=== PATIENT | female | born 1950 | race Caucasian/White ===

== ENCOUNTER → 2018-12-04 12:07 | Emergency (ER) | payer MEDICARE, OTHER ==
[~2018-12-04 12:07] MED LIST: Gadoteridol* (CONTRAST) 279.3 MG/ML 10 ML IV ONE; Ketorolac INJ* 30 MG/ML 1 ML VIAL IV PUSH ONE; Metoclopramide IV* 5 MG/ML 2 ML VIAL IV SLOW PU ONE; diPHENhydraMINE IV* 50 MG/ML 1 ml VIAL (BENADRYL) IV ONE; hydrALAZINE IV* 20 MG/ML VIAL IV SLOW PU ONE
--- NOTE | 2018-12-04 13:01 | ED ---
Headache - HPI Summary HPI Summary: A 68 y/o F with HTN presents to ED c/o intermittent pounding THOMPSON onset five days ago. Alleviating factors: Benadryl. Associated sx: nausea. Pt denies any fever, chills, erythema of eyes, photophobia, sore throat, CP, SOB, cough, abdominal pain, vomiting, dysuria, hematuria, myalgia, edema, rash, or dizziness. She has neck pain per baseline. Patient notes drinking wine the night before initial onset of THOMPSON. Her usual BP is approx 130/80. Vitals at bedside show BP: 180/115. - History Of Current Complaint Chief Complaint: EDHeadache Stated Complaint: HEADACHE PER PT Time Seen by Provider: 12/04/18 12:08 Hx Obtained From: Patient, Medical Records Onset/Duration: Started days ago, Still Present Currently Pain Is: Current Pain Scale(0-10)= - 7, Severe Timing: Intermittent, Lasting: Character: Throbbing - "aching" Allevating Factors: Medication - Benadryl Associated Signs And Symptoms: Nausea, Other (Noted In Comments) - neg: fever, chills, erythema of eyes, photophobia, sore throat, CP, SOB, cough, abdominal pain, vomiting, dysuria, hematuria, myalgia, edema, rash, or dizziness. - Allergies/Home Medications Allergies/Adverse Reactions: Allergies Allergy/AdvReac Type Severity Reaction Status Date / Time bupropion [From Wellbutrin] AdvReac Rash Verified 12/04/18 12:55 Sulfa (Sulfonamide AdvReac Hives Verified 12/04/18 12:55 Antibiotics) tramadol AdvReac Rash Verified 12/04/18 12:55 Home Medications: Home Medications Atorvastatin* [Lipitor*] 40 mg PO DAILY 12/04/18 [History Confirmed 12/04/18] Citalopram TAB* [CeleXA TAB*] 20 mg PO DAILY 12/04/18 [History Confirmed ] Furosemide TAB* [Lasix TAB*] 40 mg PO DAILY 12/04/18 [History Confirmed 12/04/18 ] Levothyroxine TAB* [Synthroid TAB*] 25 mcg PO DAILY 12/04/18 [History Confirmed 12/04/18] Naproxen TAB* [Naprosyn 250 mg TAB*] 500 mg PO Q4HR PRN 12/04/18 [History Confirmed 12/04/18] Pedi Multivit No.25/Folic Acid [Flintstones Multivit Chew Tab] 2 tab PO DAILY [History Confirmed 12/04/18] amLODIPine TAB* [Norvasc 5 mg TAB*] 2.5 mg PO DAILY 12/04/18 [History Confirmed 12/04/18] l Gasseri/B Bifidum/B Longum [[employer]] 1 cap PO DAILY 12/04/18 [ History Confirmed 12/04/18] PMH/Surg Hx/FS Hx/Imm Hx Previously Healthy: No Cardiovascular History: Reports: Hx Hypertension Respiratory History: Reports: Hx Sleep Apnea Musculoskeletal History: Reports: Other Musculoskeletal History - osteoarthritis Psychiatric History: Reports: Hx Depression - Surgical History Surgery Procedure, Year, and Place: lap band surgery - Immunization History Immunizations Up to Date: Yes Infectious Disease History: No Infectious Disease History: Denies: Traveled Outside the [place] in Last 30 Days - Family History Known Family History: Positive: Cardiac Disease, Hypertension, Diabetes, Respiratory Disease Family History: stroke, obesity - Social History Occupation: Retired Lives: With Family Alcohol Use: Occasionally Hx Substance Use: No Substance Use Type: Reports: None Hx Tobacco Use: Yes Smoking Status (MU): Former Smoker Review of Systems Negative: Fever, Chills Negative: Erythema Negative: Sore Throat Negative: Chest Pain Negative: Shortness Of Breath, Cough Positive: Nausea. Negative: Abdominal Pain, Vomiting Negative: dysuria, hematuria Negative: Myalgia, Edema Negative: Rash Neurological: Other - neg: dizziness Positive: Headache All Other Systems Reviewed And Are Negative: Yes Physical Exam - Summary Physical Exam Summary: Constitutional: Well-developed, Well-nourished, Alert. (-) Distressed Skin: Warm, Dry HENT: Normocephalic; Atraumatic Eyes: Conjunctiva normal Neck: Musculoskeletal ROM normal neck. (-) JVD, (-) Stridor, (-) Tracheal deviation Cardio: Rhythm regular, rate normal, Heart sounds normal; Intact distal pulses; The pedal pulses are 2+ and symmetric. Radial pulses are 2+ and symmetric. (-) Murmur Pulmonary/Chest wall: Effort normal. (-) Respiratory distress, (-) Wheezes, (-) Rales Abd: Soft. (-) Tenderness, (-) Distension, (-) Guarding, (-) Rebound Musculoskeletal: (-) Edema Lymph: (-) Cervical adenopathy Neuro: Alert, Oriented x3, Strength normal, Cranial nerves II-XII are grossly intact. (-) Dysmetria, (-) Nystagmus, (-) Ataxia by finger to nose testing, (-) Sensory deficit. Psych: Mood and affect Normal Triage Information Reviewed: Yes Vital Signs On Initial Exam: Initial Vitals Temp Pulse Resp BP Pulse Ox 98.1 F 66 18 183/100 99 12/04/18 12:10 12/04/18 12:10 12/04/18 12:10 12/04/18 12:10 12/04/18 12:10 Vital Signs Reviewed: Yes - Iris Coma Scale Best Eye Response: 4 - Spontaneous Best Motor Response: 6 - Obeys Commands Best Verbal Response: 5 - Oriented Coma Scale Total: 15 Diagnostics - Vital Signs Vital Signs Temp Pulse Resp BP Pulse Ox 12/04/18 12:10 98.1 F 66 18 183/100 99 - Laboratory Result Diagrams: 12/04/18 13:18 12/04/18 13:18 Lab Statement: Any lab studies that have been ordered have been reviewed, and results considered in the medical decision making process. - Radiology CXR Radiology Interpretation Completed By: Radiologist Summary of Radiographic Findings: IMPRESSION: NO ACTIVE CARDIOPULMONARY DISEASE IS NOTED. ED provider has reviewed this report. - CT BRAIN CT CT Interpretation Completed By: Radiologist Summary of CT Findings: IMPRESSION: SMALL BILATERAL SUBDURAL HEMATOMAS. THERE IS SIGNIFICANT MASS EFFECT WITH. EFFACEMENT OF THE BASILAR CISTERNS. THIS MAY BE SECONDARY TO THE SUBDURAL HEMATOMAS. ALTHOUGH APPEARS MORE PROMINENT THAN WOULD BE EXPECTED AND THEREFORE THE POSSIBILITY OF. DIFFUSE CEREBRAL EDEMA SHOULD BE CONSIDERED. AN MRI OF THE BRAIN WITHOUT AND WITH CONTRAST. MAY BE HELPFUL FOR FURTHER EVALUATION. ED provider has reviewed this report. - EKG 1304 Cardiac Rate: NL - 64 bpm EKG Rhythm: Sinus Rhythm Summary of EKG Findings: No STEMI. - Additional Comments Diagnostic Additional Comments: Brain MRI as read by radiologist: IMPRESSION: 1. UNIFORM PACHYMENINGEAL ENHANCEMENT MOST CONSISTENT WITH INTRACRANIAL HYPOTENSION IN THE ABSENCE OF A HISTORY OF MALIGNANCY. THIS MAY BE IDIOPATHIC OR SECONDARY TO CSF LEAK FROM RECENT PROCEDURE. RECOMMEND CORRELATION WITH HISTORY OF SPINAL INSTRUMENTATION. 2. SMALL BILATERAL SUBACUTE TO CHRONIC SUBDURAL HEMATOMAS, WHICH MAY ALSO BE A COMPLICATION OF INTRACRANIAL HYPOTENSION. 3. THERE ARE MULTIPLE SCATTERED NONENHANCING FOCI OF ELEVATED T2/FLAIR SIGNAL WITHIN THE PERIVENTRICULAR AND SUBCORTICAL WHITE MATTER, WELL WITHIN THE PONTINE 4. MATTER. WHILE THESE FINDINGS ARE NONSPECIFIC, THEY CAN BE SEEN IN ASSOCIATION WITH MIGRAINE HEADACHE, THE SEQUELA OF PREVIOUS INFECTION OR INFLAMMATION, AND CHRONIC SMALL VESSEL ISCHEMIA. DEMYELINATING DISEASE IS ALSO WITHIN THE DIFFERENTIAL, BUT IS CONSIDERED LESS LIKELY IN THE ABSENCE OF THE APPROPRIATE CLINICAL PRESENTATION. ED provider has reviewing this report. Re-Evaluation - Re-Evaluation 1 Re-Evaluation Time: 15:46 Change: Unchanged Comment: Discussing results thus far with patient. Patient's THOMPSON had improved, however returned and is in her occipital head. 2 Re-Evaluation Time: 19:03 Change: Unchanged Comment: Discussing results and consults with patient, and possibility for transfer. Patient is agreeable to this. Patient has 4/5 THOMPSON. 3 Re-Evaluation Time: 21:17 Change: Unchanged Comment: Discussing plan for transfer to [facility]. Headache Course/Dx - Course Course Of Treatment: Patient is a 68 y/o F with PMHx: HTN presenting with intermittent pounding THOMPSON and nausea onset five days ago. Her usual BP is approx 130/80. Vitals at bedside show BP: 180/115. Lab work is without significant abnormality except: creatinine: 0.98, BUN/C: 21.4. Brain CT shows " SMALL BILATERAL SUBDURAL HEMATOMAS. THERE IS SIGNIFICANT MASS EFFECT WITH EFFACEMENT OF THE BASILAR CISTERNS. THIS MAY BE SECONDARY TO THE SUBDURAL HEMATOMAS ALTHOUGH APPEARS MORE PROMINENT THAN WOULD BE EXPECTED AND THEREFORE THE POSSIBILITY OF DIFFUSE CEREBRAL EDEMA SHOULD BE CONSIDERED. AN MRI OF THE BRAIN WITHOUT AND WITH CONTRAST MAY BE HELPFUL FOR FURTHER EVALUATION." Will order MRI. Brain MRI shows "1. UNIFORM PACHYMENINGEAL ENHANCEMENT MOST CONSISTENT WITH INTRACRANIAL HYPOTENSION IN THE ABSENCE OF A HISTORY OF MALIGNANCY. THIS MAY BE IDIOPATHIC OR SECONDARY TO CSF LEAK FROM RECENT PROCEDURE. RECOMMEND CORRELATION WITH HISTORY OF SPINAL INSTRUMENTATION. 2. SMALL BILATERAL SUBACUTE TO CHRONIC SUBDURAL HEMATOMAS, WHICH MAY ALSO BE A COMPLICATION OF INTRACRANIAL HYPOTENSION. 3. THERE ARE MULTIPLE SCATTERED NONENHANCING FOCI OF ELEVATED T2/FLAIR SIGNAL WITHIN THE PERIVENTRICULAR AND SUBCORTICAL WHITE MATTER , WELL WITHIN THE PONTINE 4. MATTER. WHILE THESE FINDINGS ARE NONSPECIFIC , THEY CAN BE SEEN IN ASSOCIATION WITH MIGRAINE HEADACHE, THE SEQUELA OF PREVIOUS INFECTION OR INFLAMMATION, AND CHRONIC SMALL VESSEL ISCHEMIA. DEMYELINATING DISEASE IS ALSO WITHIN THE DIFFERENTIAL, BUT IS CONSIDERED LESS LIKELY IN THE ABSENCE OF THE APPROPRIATE CLINICAL PRESENTATION.". Consulted with Dr. Miller, anesthesiology, discussed MRI results and recommends transfer to tertiary center. Patient given Reglan, Benadryl and Apresoline in ED. - Diagnoses Provider Diagnoses: CSF leak, Intracranial hypotension - Physician Notifications Discussed Care Of Patient With: Sha Clinton - radiology Time Discussed With Above Provider: 14:57 Instructed by Provider To: Other - Discussing Brain CT results. Discharge - Sign-Out/Discharge Documenting (check all that apply): Patient Departure - TRANS Patient Received Moderate/Deep Sedation with Procedure: No - Discharge Plan Disposition: TRANS HIGHER LVL OF CARE FAC Referrals: No Primary Care Phys,NOPCP [Primary Care Provider] - - Attestation Statements Document Initiated by Scribe: Yes Documenting Scribe: Jamel Andrea Provider For Whom Scribe is Documenting (Include Credential): Dr. Osmany Lantigua MD Scribe Attestation: I, Jamel Andrea, scribed for Dr. Osmany Lantigua MD on 12/04/18 at 2116. Status of Scribe Document: Ready Consult Consult: 1550: Consult with Dr. Campbell, neuro MD will see patient in ED 1841: Consult with Dr. Agee, radiology Discussing MRI results, recommends consult with anesthesiology. 1844: Consult with Dr. Lino, neuro surgery Discussing MRI results, recommends consult with anesthesiology. 1853: Consult with Dr. Miller, anesthesiology Recommends transfer to tertiary center. 1932: Spoke with transfer center for [facility] Will contact [facility] and call back 1952: Spoke with transfer center for [facility] Will contact [facility] and call back 2017: Spoke with transfer center for [facility] No beds available 2025: Spoke with transfer center for [facility] Will call back 2110: Consult with Dr. Robledo, ED provider at [facility] Will accept patient for transfer.
[2018-12-04 13:25] LABS: ABS Basophils 0.1 10^3/ul (0-0.2); ABS Eosinophils 0.2 10^3/ul (0-0.6); ABS Lymphocytes 1.5 10^3/ul (1.0-4.8); ABS Monocytes 0.4 10^3/ul (0-0.8); ABS Neutrophils 4.4 10^3/ul (1.5-7.7); Eosinophil % 3.3 %; Hematocrit 41 % (35-47); Lymphocyte % 23.3 %; Mean Corpuscular HGB Conc 34 g/dL (31-36); Mean Corpuscular Hemoglobin 31 pg (27-31); Mean Corpuscular Volume 92 fL (80-97); Mean Platelet Volume 7.8 fL (7.4-10.4); Platelet Count 226 10^3/uL (150-450); Red Blood Count 4.45 10^6 /uL (3.70-4.87); Red Cell Distribution Width 14 % (10-15); White Blood Count 6.5 10^3/uL (3.5-10.8)
[2018-12-04 13:45] LABS: ALT 10 U/L (7-52); AST 16 U/L (13-39); Albumin 3.9 g/dL (3.2-5.2); Albumin/Globulin Ratio 1.4 (1-3); Alkaline Phosphatase 73 U/L (34-104); Anion Gap 7 mmol/L (2-11); BUN/Creatinine Ratio 21.4 (8-20); Blood Urea Nitrogen 21 mg/dL (6-24); CO2 Carbon Dioxide 31 mmol/L (22-32); Calcium 9.3 mg/dL (8.6-10.3); Chloride 106 mmol/L (101-111); EGFR African American 68.5 (>60); EGFR Non-African American 56.6 (>60); Globulin 2.8 g/dL (2-4); Glucose 96 mg/dL (70-100); Sodium 144 mmol/L (135-145); Total Protein 6.7 g/dL (6.4-8.9)
[2018-12-04 15:41] LABS: C Reactive Protein < 1.00 mg/L (<8.01)
--- NOTE | 2018-12-04 18:32 | CONSULT ---
Consult Consult: 1. Headache- due to low CSF pressure. This is most likely spontaneous cerebrospinal fluid leak (SCSFL) as she has no known triggers. The resolution of the headache with supine positioning confirms the diagnosis. There is no suspicion for an infection. She has no evidence of connective tissue disorder. Recommendation: - Start IV fluid normal saline 75 mL every one hour - Give one dose of Solu-Medrol 125 mg IV and continue a steroid taper (starting at 40 mg of prednisone for one week) as corticosteroids may provide transient relief - Start PO or IV caffeine every 8 hours for the next 24 hours - She needs imaging of the cervical, thoracic, and lumbar spine with and without contrast to look for a spinal tear. This can be done here or a the facility where if a tear is discovered, it can be fixed. - If a tear location is not discovered (which is typically seen in these cases) , a multilevel epidural blood patch and/or fibrin glue sealant are ways to help seal the leak. I am not sure if this can be done in our facility. Please contact IR or neurosurgery for further recommendations. I know it can be done at [facility] and . I will continue to follow. A full consult note will be dictated. Gary Campbell MD
--- NOTE | 2018-12-04 20:21 | CONS ---
NEUROLOGY CONSULTATION REPORT: DATE OF CONSULT: 12/04/18 - EMERGENCY DEPT MUSEUM SECURITY CHIEF PROVIDER: Dr. Lantigua. REASON FOR CONSULT: Headaches. CHIEF COMPLAINT: Headaches. HISTORY OF PRESENT ILLNESS: Mrs. Ruchi Huitron is a very pleasant 68-year- old female who lives in [place] who is right-handed and is here from [facility], staying with a friend. The patient stated that she has a new onset headache. She does suffer from migraines, but this is a completely new headache. The headache started Saturday, 6 days ago. She describes the headache as holocephalic, currently 2/10 in severity, but when she stands up and ambulates it can get up to 8/10 in severity. The headache is a pressure like sensation that radiates down to the neck. She feels significantly better and almost has complete resolution of the pain when she lays supine. However, the headache does get worse when she stands up or sits up. She denied any visual disturbance other than blurry vision in both eyes when her headache is severe. She denied any weakness or numbness. Sometimes she feels sick to her stomach on and off during the last 24 hours. Valsalva maneuver such as straining, sneezing, or coughing does exacerbate the pain. This is not the worst headache of her life. The patient had a CT head without contrast that was done in the ED that was reported to show mild chronic subdural hematomas. The CT had also showed questionable cerebral edema. An MRI was recommended. An MRI of brain with and without contrast was obtained on 12/04/18 and showed uniform patchy meningeal enhancement most consistent with intracranial hypotension. There is also small bilateral subacute to chronic subdural hematoma, which also may be complication of the intracranial hypotension. The patient denied any recent trauma. She denied any history of any lumbar puncture in the past. She is currently minimally symptomatic due to the headache. PAST MEDICAL HISTORY: Hypertension, dyslipidemia, fibromyalgia, partial hysterectomy, cholecystectomy, gastric sleeve, left ankle repair. FAMILY HISTORY: No family history of stroke or seizures. SOCIAL HISTORY: The patient lives with her in [place]. She quit smoking in 2000. She drinks alcohol occasionally. 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 REVIEW OF SYSTEMS: A 14 point review of system was obtained and otherwise negative except what was mentioned in the HPI. Specifically, the patient denied any fevers, neck rigidity, or chills. PHYSICAL EXAM: Vitals: Temperature of 98.1, heart rate of 66, respiratory rate of 18, oxygen saturation of 99, blood pressure when she presented was 183/ 100, but now has settled to 144/84. General: Well-nourished, well-developed female in no acute distress, alert and cooperative. Head: Normocephalic, atraumatic. Eyes: Conjunctivae/corneas are clear. Neck is supple and symmetrical with no carotid bruit. No lymphadenopathy. Lungs are clear to auscultation bilaterally. Cardiovascular: Regular rate and rhythm with normal S1, S2. Extremities: Normal range of motion with no cyanosis. Skin: No skin lesions or laceration. Psych: Affect is broad and normal mood. Neurological Examination: Mental status awake, alert and oriented to person, place, time, and general circumstance. Speech and language including expression naming repetition and comprehension were assessed and found to be normal. Cranial Nerves: Normal confrontation testing. Pupils are midrange and reactive to light. Normal consensual response. Extraocular muscles are intact. Sensation is intact on the forehead, cheeks, and jaw region bilaterally. There is no facial droop. Her facial features are symmetric. She is able to hear throughout the history process. Symmetrical palate elevation. Normal strength against shoulder shrug and tongue is symmetrical at midline with no atrophy or fasciculation. Motor: No abnormal movements or pronator drift. 5/5 strength in the upper and lower extremities bilaterally. Reflexes right/left brachioradialis 2/2, biceps 2/2, triceps 2/2, patella 2/2, ankle 1/1, plantar flexor/flexor. Sensation is intact to light touch throughout. Coordination normal [id number] and rapid alternating movement. Gait and station narrow based. No ataxia. LABORATORY DATA: WBC 6.5, hemoglobin of 14, hematocrit of 41, platelet count of 226. Sodium of 144, potassium of 4.0 chloride of 106, carbon dioxide 31, creatinine 0.98, lactic acid 0.7, C-reactive protein less than 1. ASSESSMENT: Mrs. Ruchi Huitron is a 68-year-old female who has headache secondary to low cerebrospinal fluid pressure, which is suspected to be related to a spontaneous cerebrospinal fluid leak. The patient has no evidence of connective tissue disease. She has no recent trauma or any procedures done like a lumbar puncture. The chronic subdural hygromas/hygromas are a complication from the spontaneous intracranial hypotension TREATMENT: Initial treatment include rest, caffeine intake either p.o. or IV and hydration. Please start her on Solu-Medrol 125 mg IV x1 and continue her on a Medrol-Dosepak of prednisone 40 mg slowly taper over a period of 1 week. An abdominal binder can increase the intracranial pressure, which can temporarily relieve some symptoms. Treatment options include epidural blood patch or fibrin glue sealing. The patient will need an MRI of the cervical, thoracic, and lumbar spine with and without contrast to check for the area where there is a CSF leak. If the area is undiscoverable then she is going to need a blood patch in all 3 levels of the cervical, thoracic, and lumbar spine. Prognosis is usually favorable if this can be corrected earlier on the disease course. If it is prolonged for greater than weeks to months, the patient may develop symptoms like worsening headaches, visual disturbance and memory loss. Please admit to observation status to the hospitalist team to provide some hydration and steroid use and hopefully the patient symptoms can improve. If they do not improve then she would have to be transferred to a Tertiary Center like [facility] or the [facility]. Please keep in mind that some of the workup and treatment for spontaneous intracranial hypertension can be done as an outpatient if the patient stabilizes and the headaches are not severe enough. However, given this is a new diagnosis for the patient, watching her overnight is a good idea. Neuro checks every 4 hours. I will continue to follow. [id number]/CPS #: [id number] CLAY
[2018-12-05 02:48] VITALS: BP 141/79
== END | disposition short-term general hospital (02) ==
LOC: ED 12:07
DX: G96.0 Cerebrospinal fluid leak (principal); I95.89 Other hypotension; I62.00 Nontraumatic subdural hemorrhage, unspecified; R11.0 Nausea; I10 Essential (primary) hypertension; F32.9 Major depressive disorder, single episode, unspecified; Z88.5 Allergy status to narcotic agent; Z88.2 Allergy status to sulfonamides; Z87.891 Personal history of nicotine dependence
CPT/HCPCS: 36415; 70450; 70553; 71045; 80053; 83605; 84484; 85025; 86140; 93005; 96374; 96375; 99284; A9579; J0360; J1200; J1885; J2765